=== PATIENT | female | born 2000 | race Caucasian/White ===

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

== ENCOUNTER → 2021-02-17 | Outpatient (CLI) | payer BC ==
--- NOTE | 2021-02-17 11:38 | Diagnostic Imaging Report ---
PROCEDURE: Pelvic comp/transvaginal sonogram. TECHNIQUE: Complete transabdominal and transvaginal pelvic ultrasound was performed. In addition, limited pelvic Doppler was performed. INDICATION: Amenorrhea. Uterus is anteverted measuring 7.7 x 3.3 x 4.27 m. Endometrium is 6 mm in thickness. There is some generalized endometrial heterogeneity but no discrete mass is detected. No myometrial mass is identified. Right ovary measures 4.7 x 2.5 x 3.0 cm and the left ovary measures 4.2 x 3.1 x 2.4 cm. Ovaries contain multiple follicles. There is blood flow to both ovaries. No adnexal mass or free fluid is detected. IMPRESSION: Essentially unremarkable transabdominal and transvaginal pelvic ultrasound. Dictated by: Dictated on workstation # [id number]
== END ==
LOC: RAD 10:30
PROVIDERS: ATTEND Obstetrics & Gynecology
DX: E28.2 Polycystic ovarian syndrome (principal)
CPT/HCPCS: 76830; 76856